=== PATIENT | female | born 1995 | race African-American/Black ===

== ENCOUNTER 2019-08-06 16:39 | Outpatient (CLI) | payer MEDICAID ==
--- NOTE | 2019-08-06 23:20 | Ultrasound Report ---
Reason: ACUTE PELVIC PAIN Procedure Date: 08/06/2019 Accession Number: [id number] / [id number] Procedure: US - Pelvic w/Transvaginal CPT Code: FULL RESULT: EXAM: PELVIC ULTRASOUND EXAM DATE: 08/06/2019 05:30 PM. CLINICAL HISTORY: ACUTE PELVIC PAIN. COMPARISON: None. TECHNIQUE: Realtime transabdominal pelvic scan performed to identify the uterus and adnexa and as an overview of other pelvic structures, followed by transvaginal scan to provide greater detail of the uterus and adnexa, with static image documentation. FINDINGS: Uterus: 7.9 x 3.1 x 5.0 cm, volume 63 cc. Anteverted position. Normal overall size and echotexture. Masses: None. Endometrium: 4 mm. No focal endometrial abnormalities. Cervix: Unremarkable. Right Ovary: 4.0 x 1.8 x 1.4 cm, volume 5.2 cc. Normal echotexture and blood flow. Left Ovary: 1.8 x 2.7 x 1.8 cm, volume 4.6 cc. Normal echotexture and blood flow. Free Fluid: None. Other: None. IMPRESSION: No acute sonographic abnormalities. [facility]
== END 2019-08-06 16:40 | disposition home or self-care (01) ==
LOC: DI 16:39
PROVIDERS: ATTEND Family Medicine
DX: R10.2 Pelvic and perineal pain (principal)
CPT/HCPCS: 76830; 76856